=== PATIENT | female | born 2005 | race Caucasian/White ===

== ENCOUNTER 2025-09-14 12:24 | Emergency (ER) | payer OTHER, SELFPAY ==
--- NOTE | ~2025-09-14 | XR_ITS ---
EXAMINATION: XR tibia fibula LT 2V, 09/14/2025 12:55 [facility]ER HISTORY: left tibia pain, hurting x 2 weeks, no inj, no surg COMPARISON: No comparisons available. Findings: No acute fracture or malalignment. No significant degenerative changes. Soft tissues unremarkable. Impression: No acute fracture or malalignment. Reviewed, dictated and finalized at location P. E FILER Impression: No acute fracture or malalignment.
--- NOTE | 2025-09-14 12:29 | ED_ITS ---
HPI - Extremity Injury (Lower) General Chief Complaint: Extremity Injury, Lower Stated Complaint: Leg Pain Time Seen by Provider: 09/14/25 12:55 Source: patient Mode of arrival: ambulatory Limitations: no limitations History of Present Illness HPI Narrative: Jammie is a 20-year-old female patient presenting to the clinic today with complaints left lower anterior leg pain x2 weeks. 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 Is having pain to the left anterior lower leg with ambulation/bearing weight. No known injury to her lower leg. No history of any clotting disorders. Does not take any control. She is a nonsmoker. Denies calf pain. Related Data Home Medications ?Medication ?Instructions ?Recorded ?Confirmed ?Last Taken ?Type No Home Medications 09/14/25 09/14/25 U nknown History Allergies Allergy/AdvReac Type Severity Reaction Status Date / Time No Known Allergies Allergy Verified 09/14/25 13:01 Review of Systems Review of Systems: Pertinent positives per HPI. Patient denies any fever, chills, rash, headache, visual changes, dizziness, cough, runny nose, sore throat, shortness of breath, chest pain, palpitations, nausea, vomiting, diarrhea, constipation, abdominal pain, or any urinary issues. PMFSH Comments At the time of my signature, I reviewed and agree with the nursing past medical, surgical, social, and family history. There is no relevant family history pertinent to the patient complaint. Exam Narrative: General: Well-developed, well nourished, in no apparent distress Head: Normocephalic, atraumatic. Cardio: Regular rate and rhythm, s1 and s2 normal, no murmur appreciated. Resp: Clear to auscultation bilaterally, no rhonchi, rales, wheezing or rubs. Musculoskeletal: No deformity, tender to palpation over the left lower anterior tib-fib, no redness, swelling, or erythema, pain worse with ambulation/bearing weight, grossly normal range of motion, muscle strength strong and equal, peripheral pulse strong, no edema, no cyanosis, normal gait and station Course Course Emergency Course: Portions of this record may have been created with voice recognition software. Level of Care: Express Care Visit Vital Signs Vital signs: Vital Signs Temperature 36.9 C 09/14/25 12:43 Pulse Rate 80 09/14/25 12:43 Respiratory Rate 16 09/14/25 12:43 Blood Pressure 114/74 09/14/25 12:43 Pulse Oximetry 100 09/14/25 12:43 Temperature 36.9 C 09/14/25 12:43 Pulse Rate 80 09/14/25 12:43 Respiratory Rate 16 09/14/25 12:43 Blood Pressure 114/74 09/14/25 12:43 Pulse Oximetry 100 09/14/25 12:43 Vital signs reviewed MDM - Extremity Injury (Lower) MDM Narrative Medical decision making narrative: At the time of visit patient is resting comfortably on the exam table. Patient appears to be nontoxic. Complaints left lower anterior leg pain x2 weeks. 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 Is having pain to the left anterior lower leg with ambulation/bearing weight. No known injury to her lower leg. No history of any clotting disorders. Does not take any control. She is a nonsmoker. Denies calf pain. On exam patient has point tenderness to palpation over the left lower anterior and mid tib-fib. No bruising, swelling, or redness noted. Negative Homans sign. X-ray of the left leg was ordered Diagnostics: X-ray of the left leg is negative for any sign of fracture or malalignment. Plan: I suspect patient has acute left anterior tib-fib pain-likely muscular in nature. Pain is worse with ambulation/bearing weight. Recommend rest, ice, elevation. Taking Tylenol and Motrin as needed for pain. Resting from sports/activities. Supportive measures were discussed with the patient and they voiced understanding discharge instructions and agrees to treatment plan. Return precautions reviewed Wells criteria DVT criteria 0?points Low risk group for DVT. ?Unlikely? according to Wells? DVT studies. Differential Diagnosis Differential diagnosis: Likely other (Stress fracture, muscle strain, contusion, DVT) Imaging Data Radiologist's impression: ITS Impressions Tibia/Fibula X-Ray 09/14/25 13:00 Impression: No acute fracture or malalignment. Discharge Plan Discharge Clinical Impression: Pain of anterior lower extremity Qualifiers: Laterality: left Qualified Code(s): M79.605 - Pain in left leg Patient Disposition: Home Condition: Stable Instructions: Antibiotic Form, Leg Pain (ED) Additional Instructions: X-rays negative for any sign of fracture or malalignment of the left tib-fib No clinical sign of DVT Rest, ice, and elevate May take Tylenol/Motrin as needed for pain Follow-up with your PCP in 5-7 days if symptoms persist Patient Language: Bel[place]ian Prescriptions: No Action No Home Medications Follow-up/Referrals: PHYSICIAN,IN[employer]CTOR [employer] [Primary Care Provider, Internal Medicine] Stand Alone Forms: Work/School Release IP Time of Disposition: 13:14 Quality NIHSS Nursing Documentation ED NIHSS nursing documentation: reviewed/agree
[2025-09-14 12:43] VITALS: BP 114/74; PULSE 80; RESP 16; TEMP 36.9; O2SAT 100
== END 2025-09-14 13:20 | disposition home or self-care (01) ==
PROVIDERS: Emergency Provider Nurse Practitioner Family
DX: M79.662 Pain in left lower leg (principal)
CPT/HCPCS: 73590; 99203; G0463